=== PATIENT | male | born 1995 ===

== ENCOUNTER 2018-10-03 18:59 | Emergency (ER) | payer OTHER ==
[2018-10-03 19:05] VITALS: RESP 18; TEMP 99.1; O2SAT 99
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
[2018-10-03 20:06] VITALS: BP 170/106; PULSE 76
== END 2018-10-03 20:14 | disposition home or self-care (01) ==
LOC: H.ER 18:59
DX: Z77.21 Contact with and (suspected) exposure to potentially hazardous body fluids (principal)